=== PATIENT | male | born 1980 | race Two or more races ===

== ENCOUNTER 2019-08-03 21:03 | Emergency (ER) | payer OTHER ==
[~2019-08-03] VITALS: Ht 172.7 cm; Wt 86.2 kg
[2019-08-03 21:13] VITALS: BP 127/82
--- NOTE | 2019-08-03 21:15 | NUR ---
CALLED TO TRIAGE THE PT . NO RESPONSE
[2019-08-03] MEDS ORDERED: CIPROFLOXACIN HCL 500 MG TABLET ONE (21:26)
[2019-08-03] MEDS ORDERED: CIPROFLOXACIN HCL 250 MG TABLET PO ONE (21:30)
== END 2019-08-03 21:38 | disposition home or self-care (01) ==
LOC: ER 21:10
DX: Z20.811 Contact with and (suspected) exposure to meningococcus (principal); Z60.2 Problems related to living alone